=== PATIENT | female | born 1970 | race Caucasian/White ===

== ENCOUNTER 2021-11-18 15:45 | Inpatient (IN) | payer BC ==
[~2021-11-18] VITALS: Ht 167.7 cm; Wt 58.0 kg
[2021-11-25] VITALS (10 sets, daily range): BP systolic 93–111; BP diastolic 55–79; PULSE 69–97; TEMP 36.7
--- NOTE | 2021-11-25 21:00 | NUR ---
Pt. sittin gup in bed. Pt. is A&OX3, assessment complete. IV to lt. hand patent, IV fluids infusing per orders. Epidural noted and intact. Midline incision with abd pad, cdi. Pt. denies pain or other needs, call light within reach.
[2021-11-26 04:19] VITALS: BP 96/61; PULSE 81; TEMP 98.3
[2021-11-26 06:12] LABS: HEMOGLOBIN 10.6 g/dl (12.5-16.0); MEAN CELL VOLUME 88 fl (80.0-100.0); MEAN CORPUSCULAR HEMOGLOBIN 27 pg (27-31); MEAN CORPUSCULAR HGB CONC 31 g/dl (33.0-37.0); MEAN PLATELET VOLUME 9.1 fl (7.4-10.4); PLATELET COUNT 457 K/mm3 (130-400); RED BLOOD COUNT 3.89 M/mm3 (4.10-5.30); REDCELL DISTRIBUTION WIDTH-CV 13.4 % (11.5-14.5)
[2021-11-26 06:21] LABS: HEMATOCRIT 34.1 % (37.0-47.0)
[2021-11-26 06:44] LABS: CALCIUM 8.8 mg/dL (8.4-10.2); CREATININE, serum 0.66 mg/dL (0.57-1.11); POTASSIUM 4.3 mmol/L (3.5-4.5)
[2021-11-26 07:10] LABS: BAND 7 % (0-10); LYMPHOCYTE 6 % (20.0-51.0); NEUTROPHILS 82 % (42.0-75.2)
[2021-11-26 07:11] LABS: HYPOCHROMIA 1+; PLATELET ESTIMATE INCREASED (NORMAL)
[2021-11-26 07:29] VITALS: BP 99/71; PULSE 81; TEMP 98.6
--- NOTE | 2021-11-26 10:18 | NUR ---
Initial visit; Patient thanked Jewelry Bench Worker for visiting and said she is fine now that the surgical procedure is behind her. Jewelry Bench Worker offered God's blessings and wished her well.
--- NOTE | 2021-11-26 11:33 | NUR ---
ANESTHESIA PAGED, CALL BACK RECIEVED. INFORMED ITS OK FOR PATIENT TO HAVE LOVENOX INJECTION.
[2021-11-26 12:06] VITALS: BP 101/58; PULSE 77; TEMP 98.9
--- NOTE | 2021-11-26 13:12 | NUR ---
foundry worker met with patient to compelte intake and discuss discharge plan. Patient reports that that she lives at home in [place] and that her 25 yr old daughter lives with her. Patient is independent with her ADL's and does not utilize any DME to assist with mobility. Patient has no home oxygen needs. PCP is Gayle Roldan through [facility] and she utilizes [facility] for prescriptions. Patient reports that she does have a [employer] established listing her son SHASHI ([phone]) as her agent. Patient is planning on returning home once medically ready with no concerns. Patient states that she is needing a nocotine patch. Patient's RN notified. Discharge plan: Home
--- NOTE | 2021-11-26 16:00 | NUR ---
PER PATIENTS REQUEST SHE WAS ASSISTED UP, WALKED ROOM AND SAT IN CHAIR FOR 2 HOURS.
[2021-11-26 16:08] VITALS: BP 110/62; PULSE 89; TEMP 98.5
--- NOTE | 2021-11-26 18:12 | NUR ---
PATIENT TOLERATIED GENERAL DIET
[2021-11-26 19:24] VITALS: BP 103/57; PULSE 86; TEMP 98.2
--- NOTE | 2021-11-26 20:00 | NUR ---
Pt. sitting up in bed. Pt. is A&OX3, assessment complete. INT to lt. hand patent. Epidural intact. Pt. denies pain. Abd. incision CDI. Pt. denies further needs, call light within reach.
[2021-11-26 23:46] VITALS: BP 98/69; PULSE 82; TEMP 98.1
[2021-11-27 04:13] VITALS: BP 106/62; PULSE 72; TEMP 97.9
[2021-11-27 07:32] VITALS: BP 104/66; PULSE 67; TEMP 97.9
[2021-11-27 11:45] VITALS: BP 105/60; PULSE 71; TEMP 98.1
[2021-11-27 15:46] VITALS: BP 99/61; PULSE 72; TEMP 98.4
[2021-11-27 20:09] VITALS: BP 107/76; PULSE 76; TEMP 97.5
--- NOTE | 2021-11-27 21:37 | NUR ---
PT IN BED. REFUSES TRAZODONE FOR SLEEP. ADMINISTERED LOVENOX. ABD SLIGHT DISTENDED WITH YUDITH INTACT TO MIDLINE INCISION. REPORTS PASSING GAS AND VOIDING WITHOUT PROBLEM. DENIES NEED FOR PAIN MEDS AT THIS TIME.
[2021-11-27 23:09] VITALS: BP 97/62; PULSE 76; TEMP 98.7
--- NOTE | 2021-11-27 23:13 | NUR ---
PT ASKING FOR PAIN MEDS, NORCO 1 TAB PO GIVEN.
[2021-11-28 03:06] VITALS: BP 95/65; PULSE 76; TEMP 98.3
--- NOTE | 2021-11-28 06:00 | NUR ---
PT DENIES NEEDS. ABD BINDER PROVIDED WITH INSTRUCTION ON USE.
[2021-11-28 07:30] VITALS: BP 100/59; PULSE 76; TEMP 98.8
[2021-11-28] MEDS ORDERED: NORCO 325 MG-51 TAB PO ×2 (08:05→13:50)
== END 2021-11-28 11:28 | disposition home or self-care (01) | DRG 330 ==
LOC: INPTSU 11-25 11:14 → SURG 11-25 13:00
PROVIDERS: ADMIT Surgery
PROC: 0DTF0ZZ Resection of Right Large Intestine, Open Approach (ICD-10-PCS; principal; 2021-11-25 13:00)
DX: C18.2 Malignant neoplasm of ascending colon (principal); K91.89 Other postprocedural complications and disorders of digestive system; K56.7 Ileus, unspecified; F17.210 Nicotine dependence, cigarettes, uncomplicated; F41.9 Anxiety disorder, unspecified; Z90.49 Acquired absence of other specified parts of digestive tract
CPT/HCPCS: A4314; A9284; J0690; J1100; J1650; J2250; J2370; J2405; J2550; J2704; J2795; J3010; J7120